=== PATIENT | male | born 1975 ===

== ENCOUNTER 2019-09-13 23:43 | Emergency (ER) | payer BC ==
[2019-09-13 23:53] VITALS: BP 119/80
[2019-09-14] MEDS ORDERED: HYDROMORPHONE HCL INJ/PF 2 MG/ML AMPULE IV ONE (00:23)
[2019-09-14] MEDS ORDERED: RINGERS SOLUTION,LACTATED 1,000 ML IV ONE (00:24)
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
[2019-09-14] MEDS ORDERED: ONDANSETRON HCL INJ/PF 4 MG/2 ML SDV IV ONE (01:02)
[2019-09-14] MEDS ORDERED: DIPH/PERTUSS(ACELL)/TETANUS VAC/PF 0.5 ML SYR (>=10YO) IM ONE (01:02)
[2019-09-14] MEDS ORDERED: LIDOCAINE 4% TRANSPARENT DRESSING 5 GM KIT TP ONE (01:12)
[2019-09-14 01:56] LABS: ANION GAP 12 (5-19); BLOOD UREA NITROGEN 11 mg/dL (7-20); CALCIUM 9.9 mg/dL (8.4-10.2); CARBON DIOXIDE 22 mmol/L (22-30); CHLORIDE 110 mmol/L (98-107); GLUCOSE 87 mg/dL (75-110); POTASSIUM 4.7 mmol/L (3.6-5.0)
[2019-09-14] MEDS ORDERED: SILVER SULFADIAZINE 1% CREAM 25 GM TP ONE (03:16)
== END 2019-09-14 03:29 | disposition left against medical advice (07) ==
LOC: ER 23:43
DX: T23.261A Burn of second degree of back of right hand, initial encounter (principal); T23.241A Burn of second degree of multiple right fingers (nail), including thumb, initial encounter; T23.251A Burn of second degree of right palm, initial encounter; T31.0 Burns involving less than 10% of body surface; X03.0XXA Exposure to flames in controlled fire, not in building or structure, initial encounter; F17.200 Nicotine dependence, unspecified, uncomplicated; Z23 Encounter for immunization
CPT/HCPCS: 36415; 80048; 90715; J1170; J3490; J2405; J7120